=== PATIENT | female | born 1990 | race Hispanic/Latino ===

== ENCOUNTER 2017-05-10 12:02 | Emergency (ER) | payer BC ==
[2017-05-10 12:27] VITALS: BP 145/95; PULSE 114; RESP 16; TEMP 97; O2SAT 99
--- NOTE | 2017-05-10 12:55 | ED PDOC ---
Upper Extremity Pain/Injury Time Seen by Provider: 05/10/17 12:16 Chief Complaint (Nursing): Finger,Hand,&Wrist Chief Complaint (Provider): Right wrist pain History Per: Patient History/Exam Limitations: no limitations Onset/Duration Of Symptoms: Mins Current Symptoms Are (Timing): Still Present Quality: "Pain" Exacerbating Factor(s): Strenuous Use Of Affected Area Additional History Per: Patient Additional Complaint(s): The patient is a 26yo female, presents to the ED for evaluation of right wrist pain since earlier today. Patient reports a mechanical fall and upon attempting to break the fall, she landed on her right wrist. Patient reports pain to her wrist, worse with movement; she states she applied an ice pack to the wrist but denies taking any pain medications. She denies any numbness or tingling to her wrist. She offers no additional medical complaints. Past Medical History Reviewed: Historical Data, Nursing Documentation, Vital Signs Vital Signs: Last Vital Signs Temp 97.0 F L 05/10/17 12:23 Pulse 114 H 05/10/17 12:23 Resp 16 05/10/17 12:23 BP 145/95 H 05/10/17 12:23 Pulse Ox 99 05/10/17 12:23 - Medical History PMH: No Chronic Diseases - Surgical History Surgical History: No Surg Hx - Family History Family History: States: No Known Family Hx - Social History Current smoker - smoking cessation education provided: No Alcohol: None Drugs: Denies - Allergies Allergies/Adverse Reactions: Allergies Allergy/AdvReac Type Severity Reaction Status Date / Time No Known Allergies Allergy Verified 05/10/17 12:23 Review of Systems Musculoskeletal: Positive for: Hand Pain (right wrist pain) Neurological: Negative for: Weakness, Numbness Physical Exam - Reviewed Nursing Documentation Reviewed: Yes Vital Signs Reviewed: Yes - Physical Exam Appears: Positive for: Non-toxic, No Acute Distress Skin: Positive for: Normal Color Eye Exam: Positive for: Normal appearance Neck: Positive for: Supple Cardiovascular/Chest: Positive for: Regular Rate, Rhythm Respiratory: Negative for: Respiratory Distress Pulses-Radial (R): 2+ Extremity: Positive for: Tenderness (+ snuffbox tenderness, distal ulna tenderness or right upper extremity ). Negative for: Deformity, Swelling Neurologic/Psych: Positive for: Alert, Oriented. Negative for: Motor/Sensory Deficits - ECG O2 Sat by Pulse Oximetry: 99 (RA) Pulse Ox Interpretation: Normal Medical Decision Making Medical Decision Making: Time: 1230 Impression: Right wrist pain s/p mechanical fall Plan: -- XR Right wrist -- Motrin 600 mg PO Reassess x-ray: Cortical abnormalities of the scaphoid, no acute fracture seen PT placed in a thumb spice. Discussed repeat x-ray in 7-10 days Scribe Attestation: Documented by Galilea Guerrero acting as a scribe for BOLA Latham Provider Attestation: All medical record entries made by the Scribe were at my direction and personally dictated by me. I have reviewed the chart and agree that the record accurately reflects my personal performance of the history, physical exam, medical decision making, and the department course for this patient. I have also personally directed, reviewed, and agree with the discharge instructions and disposition. Disposition - Clinical Impression Clinical Impression: Hand injury - Disposition Referrals: Abisai Mas MD [Staff Provider] - Disposition: Routine/Home Disposition Time: 13:34 Condition: GOOD Additional Instructions: Repeat x-rays in 7-10 days. Instructions: Scaphoid Fracture (ED) Forms: [facility] (Bulgarian)
--- NOTE | 2017-05-10 14:20 | RAD ---
PROCEDURE: Left Hand Radiographs. HISTORY: pain s/p FOOSH COMPARISON: None. FINDINGS: BONES: Normal. No fracture. JOINTS: Normal. No osteoarthritic changes. SOFT TISSUES: Normal. OTHER FINDINGS: None. IMPRESSION: No acute findings related to/accounting for the clinical presentation. No preliminary report provided by emergency department personnel.
== END 2017-05-10 13:44 | disposition home or self-care (01) ==
LOC: H.ER 12:02
DX: S69.91XA Unspecified injury of right wrist, hand and finger(s), initial encounter (principal); W19.XXXA Unspecified fall, initial encounter; Y92.89 Other specified places as the place of occurrence of the external cause